=== PATIENT | female | born 1930 | race Caucasian/White ===

== ENCOUNTER → 2022-03-08 | Emergency (ER) | payer MEDICARE ==
[~2022-03-08] MED LIST: APIX5TAB PO; DILT-118 PO; DILTIAZEM 125 MG/25 ML INJ IV ONE; DILTIAZEM 25MG INJ IVP ONE; LOSA25TA41 PO; NITR0.4T50 SL; POTASSIUM BICARB/CIT AC 25 MEQ TABLET.EFF ONE
== END | disposition left against medical advice (07) ==
LOC: EDH 20:56
DX: R07.9 Chest pain, unspecified (principal); Z53.21 Procedure and treatment not carried out due to patient leaving prior to being seen by health care provider
CPT/HCPCS: 93005; J3490 ×2